=== PATIENT | male | born 1960 | race Two or more races ===

== ENCOUNTER 2017-01-06 04:54 | Inpatient (IN) | payer MEDICAID ==
[~2017-01-06] VITALS: Ht 177.8 cm; Wt 108.5 kg
[~2017-01-06 04:54] MED LIST: NOR10T
[2017-01-06] MEDS ORDERED: MECLIZINE HCL 25 MG TAB PO ONE (05:30)
[2017-01-06 06:07] LABS: Basophils # (auto) 0.1 uL; Basophils % (auto) 0.7 % (0.0-2.0); Eosinophils # (auto) 0.2 uL; Hematocrit 46.3 % (41.0-53.0); Hemoglobin 14.5 g/dL (13.5-17.5); Lymphocytes # (auto) 1.8 uL; Lymphocytes % (auto) 21.6 % (10.0-50.0); Mean Corpuscular Hemoglobin 28.2 pg (28.0-32.0); Mean Corpuscular Hgb Conc. 31.3 g/dL (32.0-36.0); Mean Corpuscular Volume 90.1 fL (80.0-100.0); Mean Platelet Volume 9.3 fL (7.4-10.4); Monocytes # (auto) 0.9 uL; Monocytes % (auto) 10.3 % (0.0-12.0); Neutrophils # (auto) 5.3 uL; Neutrophils % (auto) 64.4 % (37.0-80.0); Platelet Count (auto) 283 10^3/uL (140-450); Red Cell Distribution Width 13.8 % (11.6-16.0); White Blood Cell 8.3 10^3/uL (4.4-10.8)
[2017-01-06 06:27] LABS: Urine Bilirubin Negative (Negative); Urine Blood TRACE /uL (Negative); Urine Color Yellow (Yellow); Urine Glucose Normal (Normal); Urine Hyaline Cast MANY /lpf (0 - 2); Urine Ketone Negative (Negative); Urine Mucus FEW (None Seen); Urine Nitrite Negative (Negative); Urine RBC 1 /hpf (0 - 3); Urine Squamous Epithelial Cell FEW /hpf (<5); Urine Urobilinogen Normal (Negative); Urine pH 5.5 (5.0-8.0)
[2017-01-06 06:29] LABS: Albumin 3.8 g/dL (3.4-5.0); Calcium 8.8 mg/dL (8.5-10.1); Magnesium 2.7 mg/dL (1.6-2.6); Potassium 4.2 mmol/L (3.5-5.1)
[2017-01-06 06:31] LABS: B-Type Natriuretic Peptide 6.03 pg/mL (0-100)
[2017-01-06 06:33] LABS: Bilirubin, Total 0.7 mg/dL (0.2-1.0)
[2017-01-06] MEDS ORDERED: ASPirin 81 mg TAB PO ONE (08:00)
[2017-01-06] MEDS ORDERED: SODIUM CHLORIDE 0.9% 1,000 ML IV SCH (08:31)
[2017-01-06] MEDS ORDERED: LORazepam 0.5 MG TAB PO PRN (08:45)
[2017-01-06] MEDS ORDERED: TEMAZEPAM 15 MG CAP PO PRN (08:45)
[2017-01-06] MEDS ORDERED: HYDROcodone-ACET 5/325MG TAB PO PRN (08:45)
[2017-01-06] MEDS ORDERED: PROMETHAZINE HCL 25 MG/ML 1ML IV PRN (08:45)
[2017-01-06] MEDS ORDERED: LACTULOSE 20Gm/30ML SOLN PO PRN (08:45)
[2017-01-06] MEDS ORDERED: ACETAMINOPHEN 500 MG TAB PO PRN (08:45)
[2017-01-06] MEDS ORDERED: DEXTROSE (50%) 50ML SYRG IV PRN (08:45)
[2017-01-06] MEDS ORDERED: NITROGLYCERIN 0.4 MG SL TAB SL PRN (08:45)
[2017-01-06] MEDS ORDERED: MORPHINE SULF INJ 2 MG/ML SYRINGE 1ML IV PRN ×2 (08:45)
[2017-01-06] MEDS ORDERED: SODIUM CHLORIDE 0.9% 1,000 ML IV ONE (09:00)
[2017-01-06 09:33] LABS: Cholesterol 202 mg/dL (<200); HDL Cholesterol 43 mg/dL (40-59); LDL Cholesterol 146 mg/dL (<100); Triglycerides 114 mg/dL (<150)
[2017-01-06] MEDS: ENOXAPARIN SOD 40 MG/0.4 ML SYRINGE SC SCH (10:00)
[2017-01-06] MEDS ORDERED: ASPirin 81 mg TAB PO SCH (10:00)
[2017-01-06] MEDS: NITROGLYCERIN 0.2MG/HR TOPICAL PATCH TD SCH (10:00)
[2017-01-06] MEDS: PANTOPRAZOLE 40 MG TAB PO SCH (10:00)
[2017-01-06] MEDS ORDERED: NITROGLYCERIN 0.2MG/HR TOPICAL PATCH TD SCH (10:00)
[2017-01-06] MEDS ORDERED: METOPROLOL TARTRATE 25 MG TAB PO SCH (10:00)
[2017-01-06] MEDS: METOPROLOL TARTRATE 25 MG TAB PO SCH ×2 (10:00→21:43)
[2017-01-06] MEDS ORDERED: OXY10CRT PO (11:24)
[2017-01-06] MEDS ORDERED: ALBUAER3 IN (11:24)
[2017-01-06] MEDS ORDERED: OMEP20CA5 PO (11:24)
[2017-01-06] MEDS ORDERED: GABA300C8 PO (11:24)
[2017-01-06] MEDS ORDERED: BACL10TA PO (11:24)
[2017-01-06] MEDS ORDERED: METH-562 PO (11:24)
[2017-01-06] MEDS ORDERED: METF-312 PO (11:24)
[2017-01-06] MEDS: InsuLIN REG 1unit/0.01ml Soln (100units/ml) SC SCH ×3 (11:30→21:44)
[2017-01-06] MEDS: ACCU-CHEK COMFORT CURVE STRIP VI SCH ×3 (11:30→21:44)
[2017-01-06 11:31] LABS: Temperature: 22.5 C (20.0-25.0)
[2017-01-06 11:34] VITALS: BP 101/73
[2017-01-06 12:48] VITALS: BP 111/68
[2017-01-06] MEDS ORDERED: PATIENTS OWN MEDICATION (Albuterol Sulfate (Ventolin Mdi) 90 MCG) IN SCH ×2 (16:00)
[2017-01-06 17:11] VITALS: BP 114/70
[2017-01-06] MEDS: oxyCODONE ER 10 MG TAB PO SCH (18:00)
[2017-01-06] MEDS ORDERED: ALBUTEROL SULF 2.5 MG/0.5ML(0.5%) NEB SOLN NEB SCH (18:00)
[2017-01-06] MEDS: GABAPENTIN 300 MG CAP PO SCH ×2 (18:01→21:41)
[2017-01-06] MEDS: ATORVASTATIN 20 MG TAB PO SCH (21:42)
[2017-01-06 22:00] VITALS: BP 105/67
[2017-01-07] VITALS (7 sets, daily range): BP systolic 109–128; BP diastolic 0–75
[2017-01-07] MEDS ORDERED: INFLUENZA QUAD 2016-2017 0.5 ML SYRG IM ONE (01:45)
[2017-01-07] MEDS: oxyCODONE ER 10 MG TAB PO SCH ×4 (02:00→21:35)
[2017-01-07] MEDS: GABAPENTIN 300 MG CAP PO SCH ×2 (05:58→21:35)
[2017-01-07] MEDS: InsuLIN REG 1unit/0.01ml Soln (100units/ml) SC SCH ×4 (06:25→21:35)
[2017-01-07] MEDS: ACCU-CHEK COMFORT CURVE STRIP VI SCH ×4 (06:25→21:35)
[2017-01-07 06:26] LABS: Basophils # (auto) 0 uL; Basophils % (auto) 0.7 % (0.0-2.0); Eosinophils # (auto) 0.3 uL; Eosinophils % (auto) 4.5 % (0.0-7.0); Hematocrit 44.2 % (41.0-53.0); Lymphocytes # (auto) 1.8 uL; Lymphocytes % (auto) 31.5 % (10.0-50.0); Mean Corpuscular Hemoglobin 28.8 pg (28.0-32.0); Mean Corpuscular Hgb Conc. 31.6 g/dL (32.0-36.0); Mean Platelet Volume 9.6 fL (7.4-10.4); Monocytes # (auto) 0.5 uL; Neutrophils # (auto) 3.2 uL; Neutrophils % (auto) 55.3 % (37.0-80.0); Platelet Count (auto) 248 10^3/uL (140-450); White Blood Cell 5.7 10^3/uL (4.4-10.8)
[2017-01-07 06:49] LABS: Albumin 3.3 g/dL (3.4-5.0); BUN/Creatinine Ratio 17.7; Bilirubin, Total 0.8 mg/dL (0.2-1.0); Calcium 8.3 mg/dL (8.5-10.1); Potassium 3.9 mmol/L (3.5-5.1); Total Protein 6.4 g/dL (6.4-8.2)
[2017-01-07] MEDS ORDERED: SODIUM CHLORIDE 0.9 % NEB SOLN 3ML NEB ONE ×2 (08:58→11:47)
[2017-01-07] MEDS: ENOXAPARIN SOD 40 MG/0.4 ML SYRINGE SC SCH (09:46)
[2017-01-07] MEDS: PANTOPRAZOLE 40 MG TAB PO SCH (09:47)
[2017-01-07] MEDS: ASPirin 81 mg TAB PO SCH (09:47)
[2017-01-07] MEDS: NITROGLYCERIN 0.2MG/HR TOPICAL PATCH TD SCH (09:51)
[2017-01-07] MEDS: METOPROLOL TARTRATE 25 MG TAB PO SCH ×2 (10:00→21:34)
[2017-01-07] MEDS ORDERED: SODIUM CHLORIDE 0.9% 1,000 ML IV SCH (10:00)
[2017-01-07] MEDS ORDERED: OMEPRAZOLE 20MG/10ML ORAL SUSP PO SCH (10:00)
[2017-01-07] MEDS ORDERED: BACLOFEN 10 MG TAB PO SCH (10:00)
[2017-01-07] MEDS ORDERED: GABAPENTIN 300 MG CAP PO SCH (12:00)
[2017-01-07] MEDS: ATORVASTATIN 20 MG TAB PO SCH (21:35)
[2017-01-08 04:47] VITALS: BP 133/84
[2017-01-08] MEDS: InsuLIN REG 1unit/0.01ml Soln (100units/ml) SC SCH (06:05)
[2017-01-08] MEDS: ACCU-CHEK COMFORT CURVE STRIP VI SCH (06:05)
[2017-01-08 06:10] LABS: Basophils # (auto) 0 uL; Basophils % (auto) 0.4 % (0.0-2.0); Eosinophils # (auto) 0.3 uL; Eosinophils % (auto) 4.7 % (0.0-7.0); Hematocrit 44.6 % (41.0-53.0); Lymphocytes # (auto) 1.5 uL; Lymphocytes % (auto) 24.7 % (10.0-50.0); Mean Corpuscular Hemoglobin 28.6 pg (28.0-32.0); Mean Corpuscular Hgb Conc. 31.3 g/dL (32.0-36.0); Mean Corpuscular Volume 91.4 fL (80.0-100.0); Monocytes # (auto) 0.6 uL; Monocytes % (auto) 10.7 % (0.0-12.0); Neutrophils # (auto) 3.5 uL; Neutrophils % (auto) 59.5 % (37.0-80.0); Platelet Count (auto) 257 10^3/uL (140-450); Red Cell Distribution Width 13.6 % (11.6-16.0); White Blood Cell 5.9 10^3/uL (4.4-10.8)
[2017-01-08 06:30] LABS: BUN/Creatinine Ratio 17.6; Calcium 8.4 mg/dL (8.5-10.1); Potassium 3.9 mmol/L (3.5-5.1)
[2017-01-08 08:00] VITALS: BP 120/79
[2017-01-08 08:51] VITALS: BP 120/79
[2017-01-08] MEDS: oxyCODONE ER 10 MG TAB PO SCH ×2 (10:00→21:47)
[2017-01-08] MEDS: METOPROLOL TARTRATE 25 MG TAB PO SCH ×2 (10:00→21:46)
[2017-01-08] MEDS: ENOXAPARIN SOD 40 MG/0.4 ML SYRINGE SC SCH (10:27)
[2017-01-08] MEDS: ASPirin 81 mg TAB PO SCH (10:28)
[2017-01-08] MEDS: PANTOPRAZOLE 40 MG TAB PO SCH (10:30)
[2017-01-08 13:00] VITALS: BP 122/83
[2017-01-08 17:14] VITALS: BP 123/66
[2017-01-08] MEDS: ATORVASTATIN 20 MG TAB PO SCH (21:46)
[2017-01-08] MEDS: GABAPENTIN 300 MG CAP PO SCH (21:47)
[2017-01-08 22:00] VITALS: BP 127/87
[2017-01-09 05:00] VITALS: BP 112/70
[2017-01-09 08:05] LABS: Vitamin D 25-Hydroxy 12 ng/mL (.); Vitamin D-2 25-Hydroxy <1.0 ng/mL (.)
[2017-01-09 09:24] VITALS: BP 112/84
[2017-01-09] MEDS: oxyCODONE ER 10 MG TAB PO SCH (10:00)
[2017-01-09] MEDS: METOPROLOL TARTRATE 25 MG TAB PO SCH (10:00)
[2017-01-09] MEDS: ASPirin 81 mg TAB PO SCH (10:36)
[2017-01-09] MEDS: PANTOPRAZOLE 40 MG TAB PO SCH (10:37)
[2017-01-09] MEDS: ENOXAPARIN SOD 40 MG/0.4 ML SYRINGE SC SCH (10:37)
[2017-01-09] MEDS ORDERED: DIVA250T6 PO (11:54)
[2017-01-09] MEDS ORDERED: CHOL20007 PO (11:56)
[2017-01-09 13:34] VITALS: BP 127/87
[2017-01-09 14:01] VITALS: BP 101/68
== END 2017-01-09 17:00 | disposition home or self-care (01) | DRG 460 ==
LOC: ER 04:55 → TELE 04:56 → TELE-WESTW 10:45
PROVIDERS: ADMIT Internal Medicine; ATTEND Internal Medicine
DX: N17.0 Acute kidney failure with tubular necrosis (principal); I95.9 Hypotension, unspecified; E11.42 Type 2 diabetes mellitus with diabetic polyneuropathy; E11.22 Type 2 diabetes mellitus with diabetic chronic kidney disease; N28.0 Ischemia and infarction of kidney; E86.0 Dehydration; M94.0 Chondrocostal junction syndrome [Tietze]; E55.9 Vitamin D deficiency, unspecified; M72.2 Plantar fascial fibromatosis; M47.9 Spondylosis, unspecified; N18.9 Chronic kidney disease, unspecified; G40.909 Epilepsy, unspecified, not intractable, without status epilepticus; G89.4 Chronic pain syndrome; N39.0 Urinary tract infection, site not specified; K21.9 Gastro-esophageal reflux disease without esophagitis; E78.5 Hyperlipidemia, unspecified; R55 Syncope and collapse; G56.03 Carpal tunnel syndrome, bilateral upper limbs; M54.5 Low back pain; F17.200 Nicotine dependence, unspecified, uncomplicated; I25.10 Atherosclerotic heart disease of native coronary artery without angina pectoris; I12.9 Hypertensive chronic kidney disease with stage 1 through stage 4 chronic kidney disease, or unspecified chronic kidney disease; E66.9 Obesity, unspecified; Z23 Encounter for immunization; Z90.49 Acquired absence of other specified parts of digestive tract; Z82.49 Family history of ischemic heart disease and other diseases of the circulatory system; Z83.3 Family history of diabetes mellitus; Z80.9 Family history of malignant neoplasm, unspecified; Z79.899 Other long term (current) drug therapy; Z68.34 Body mass index [BMI] 34.0-34.9, adult; Z98.890 Other specified postprocedural states
CPT/HCPCS: 36415; 70450; 70551; 71010; 76775; 78582; 80048; 80053; 80061; 80164; 81001; 82306; 82550; 82570; 82607; 82746; 82962; 83036; 83735; 83880; 83970; 84100; 84156; 84443; 84484; 85025; 85379; 85652; 86141; 87086; 93005; 93306; 93886; 94640; 94761; 95819; 96360; 96361; G0434

== ENCOUNTER 2017-10-27 20:51 | Emergency (ER) | payer MEDICAID ==
[~2017-10-27] VITALS: Ht 175.3 cm; Wt 98.4 kg
[~2017-10-27 20:51] MED LIST changes: +ALBUAER3 IN; +CHOL20007 PO; +DIVA250T6 PO; +GABA-497 PO; +METF-370 PO; -NOR10T; +OMEP20CA74 PO; +OXY10CRT PO
[2017-10-27 22:07] LABS: Basophils # (auto) 0.1 uL; Basophils % (auto) 1.1 % (0.0-2.0); Eosinophils # (auto) 0.2 uL; Eosinophils % (auto) 2.3 % (0.0-7.0); Hematocrit 42.5 % (41.0-53.0); Hemoglobin 14.3 g/dL (13.5-17.5); Lymphocytes # (auto) 1.6 uL; Lymphocytes % (auto) 17.8 % (10.0-50.0); Mean Corpuscular Hemoglobin 30.5 pg (28.0-32.0); Mean Corpuscular Hgb Conc. 33.7 g/dL (32.0-36.0); Mean Corpuscular Volume 90.3 fL (80.0-100.0); Mean Platelet Volume 8.5 fL (6.9-10.8); Monocytes # (auto) 0.6 uL; Monocytes % (auto) 7.3 % (0.0-12.0); Neutrophils # (auto) 6.4 uL; Neutrophils % (auto) 71.5 % (37.0-80.0); Platelet Count (auto) 261 10^3/uL (140-450); Red Cell Distribution Width 13.7 % (11.8-14.3); White Blood Cell 8.9 10^3/uL (4.4-10.8)
[2017-10-27 22:20] LABS: Magnesium 2.2 mg/dL (1.6-2.6)
[2017-10-27 22:21] LABS: Albumin 3.3 g/dL (3.4-5.0); BUN/Creatinine Ratio 18.1; Calcium 8.7 mg/dL (8.5-10.1); Potassium 4.1 mmol/L (3.5-5.1)
[2017-10-27 22:27] LABS: B-Type Natriuretic Peptide 43.45 pg/mL (0-100)
[2017-10-27 22:29] LABS: Urine RBC None Seen /hpf (0 - 3)
[2017-10-27 22:45] LABS: Temperature: 22.7 C (20.0-25.0)
[2017-10-27 22:50] LABS: Bilirubin, Total 0.6 mg/dL (0.2-1.0)
[2017-10-27 22:52] LABS: INR 0.9 (0.9-1.15); Partial Thromboplastin Time 27.5 sec (22.64-33.71); Prothrombin Time 9.8 sec (9.37-12.3)
[2017-10-27 22:59] LABS: Urine Bilirubin Negative (Negative); Urine Blood Negative /uL (Negative); Urine Color Yellow (Yellow); Urine Glucose Normal (Normal); Urine Ketone Negative (Negative); Urine Nitrite Negative (Negative); Urine Urobilinogen Normal (Negative); Urine pH 6.5 (5.0-8.0)
[2017-10-28 06:04] VITALS: BP 124/96
== END 2017-10-28 06:38 | disposition home or self-care (01) ==
LOC: ER 20:51 → EDBD 20:51 → ER 10-28 06:38
DX: N20.0 Calculus of kidney (principal); K59.00 Constipation, unspecified; I25.10 Atherosclerotic heart disease of native coronary artery without angina pectoris; K21.9 Gastro-esophageal reflux disease without esophagitis; I12.9 Hypertensive chronic kidney disease with stage 1 through stage 4 chronic kidney disease, or unspecified chronic kidney disease; E11.22 Type 2 diabetes mellitus with diabetic chronic kidney disease; N18.9 Chronic kidney disease, unspecified; E78.5 Hyperlipidemia, unspecified; R42 Dizziness and giddiness; Z79.899 Other long term (current) drug therapy
CPT/HCPCS: 36415; 70450; 71010; 74176; 80053; 81001; 83690; 83735; 83880; 84443; 84484; 85025; 85379; 85610; 85730; 93005; 94761

== ENCOUNTER 2018-05-07 07:11 | Emergency (ER) | payer MEDICAID ==
[~2018-05-07] VITALS: Ht 175.3 cm; Wt 95.3 kg
[~2018-05-07 07:11] MED LIST changes: -GABA-497 PO; +GABA300C10 PO
[2018-05-07] MEDS ORDERED: NITROGLYCERIN 0.4 MG SL TAB SL ONE (08:45)
[2018-05-07] MEDS ORDERED: ASPirin 81 mg TAB PO ONE (08:45)
[2018-05-07 08:54] LABS: Basophils # (auto) 0.1 uL; Basophils % (auto) 0.8 % (0.0-2.0); Eosinophils # (auto) 0.1 uL; Eosinophils % (auto) 1.7 % (0.0-7.0); Hematocrit 47.5 % (41.0-53.0); Hemoglobin 15.8 g/dL (13.5-17.5); Lymphocytes # (auto) 1.5 uL; Lymphocytes % (auto) 21.2 % (10.0-50.0); Mean Corpuscular Hemoglobin 29.9 pg (28.0-32.0); Mean Corpuscular Hgb Conc. 33.2 g/dL (32.0-36.0); Mean Corpuscular Volume 90.1 fL (80.0-100.0); Monocytes # (auto) 0.5 uL; Monocytes % (auto) 7.7 % (0.0-12.0); Neutrophils # (auto) 4.8 uL; Neutrophils % (auto) 68.6 % (37.0-80.0); Nucleated Red Blood Cells % 0.1 %; Platelet Count (auto) 260 10^3/uL (140-450); Red Blood Cells 5.27 10^6/uL (4.5-5.90); Red Cell Distribution Width 13.3 % (11.8-14.3)
[2018-05-07 09:14] LABS: Alanine Aminotransferase 35 U/L (16-61); Alkaline Phosphatase 106 U/L (45-117); Anion Gap 7 (5-15); Aspartate Aminotransferase 19 U/L (15-37); BUN/Creatinine Ratio 16.1; Bilirubin, Total 0.8 mg/dL (0.2-1.0); Blood Urea Nitrogen 19 mg/dL (7-18); Calcium 9.1 mg/dL (8.5-10.1); Carbon Dioxide 29 mmol/L (21-32); Chloride 104 mmol/L (98-107); GFR African American 82 mL/min; GFR Non-African American 67 mL/min; Glucose 108 mg/dL (74-106); Potassium 4.4 mmol/L (3.5-5.1); Sodium 140 mmol/L (136-145); Total Protein 7.7 g/dL (6.4-8.2)
[2018-05-07 10:41] VITALS: BP 133/108
[2018-05-07 12:26] LABS: Urine Bacteria NONE SEEN /hpf (None Seen); Urine Blood Negative /uL (Negative); Urine Specific Gravity 1.017 (1.001-1.035); Urine WBC 1 /hpf (0 - 3)
== END 2018-05-07 12:47 | disposition home or self-care (01) ==
LOC: ER 07:11 → EDBD 07:11 → ER 12:47
DX: R07.89 Other chest pain (principal); N20.0 Calculus of kidney; R42 Dizziness and giddiness; E11.22 Type 2 diabetes mellitus with diabetic chronic kidney disease; I12.9 Hypertensive chronic kidney disease with stage 1 through stage 4 chronic kidney disease, or unspecified chronic kidney disease; N18.9 Chronic kidney disease, unspecified; K21.9 Gastro-esophageal reflux disease without esophagitis; E78.5 Hyperlipidemia, unspecified
CPT/HCPCS: 36415; 71046; 74176; 80053; 81001; 84484; 85025; 93005; 94761